=== PATIENT | female | born 1960 | race Hispanic/Latino ===

== ENCOUNTER 2018-06-09 19:07 | Inpatient (IN) | payer OTHER ==
[~2018-06-09] VITALS: Ht 157.5 cm; Wt 93.7 kg
[2018-06-09] MEDS: SODIUM CHLORIDE 0.9% 1000ML 1,000 ML IV SCH (00:15)
[2018-06-09] MEDS ORDERED: IPRATROPIUM/ALBUTEROL SULFATE 3 ML SOLUTION IH ONE ×3 (19:35→23:02)
[2018-06-09] MEDS ORDERED: CEFTRIAXONE SODIUM 1 GM ONE (19:46)
[2018-06-09 19:51] LABS: ABG BASE EXCESS 3.4 mmol/L (-2.0-3.0); ABG HCO3 28.1 mmol/L (21.0-28.0); ABG OXYGEN SATURATION 90.7 % (95.0-99.0); ABG PCO2 43 mmHg (32-45)
[2018-06-09] MEDS ORDERED: LEVOFLOXACIN 500 MG/D5W 100 ML 100 ML ONE (19:59)
[2018-06-09 20:03] LABS: CREATININE 0.9 mg/dL (0.5-1.5); POTASSIUM 3.9 mmol/L (3.5-5.1)
[2018-06-09 20:07] LABS: INR 1.01 (0.85-1.15); PARTIAL THROMBOPLASTIN TIME 44.8 SEC (26.3-35.5); PROTHROMBIN TIME 10.6 SEC (9.6-11.6)
[2018-06-09 20:09] LABS: ALBUMIN 2.9 g/dL (3.5-5.0); BILIRUBIN,TOTAL 0.4 mg/dL (0.2-1.0); TOTAL PROTEIN, SERUM 8.6 g/dL (6.0-8.3)
[2018-06-09 20:15] LABS: BASOPHILS % (AUTO) 0.3 % (0.0-5.0); EOSINOPHILS % (AUTO) 0.1 % (0.0-8.0); HEMATOCRIT 38.9 % (36-48); LYMPHOCYTES % (AUTO) 20.5 % (21.0-51.0); MEAN CORPUSCULAR HEMOGLOBIN 29.7 pg (27.0-33.0); MEAN CORPUSCULAR VOLUME 90.1 fL (79-99); MONOCYTES % (AUTO) 6.8 % (3.0-13.0); NEUTROPHILS % (AUTO) 72.3 % (40.0-77.0); NUCLEATED RED BLOOD CELLS 0.1 % (0.0-0.19); PLATELET COUNT (AUTO) 287 K/uL (130-400); RED BLOOD CELL COUNT(AUTO) 4.32 MIL/uL (4.00-5.50); RED CELL DISTRIBUTION WIDTH 14.6 % (11.0-15.5); WHITE BLOOD COUNT (AUTO) 5.7 K/uL (4.8-10.8)
[2018-06-09] MEDS ORDERED: IOHEXOL-350 75 ML VIAL IV ONE (20:28)
[2018-06-09] MEDS ORDERED: ACETAMINOPHEN EXTRA STRENGTH 500 MG TABLET ONE (22:17)
[2018-06-09 22:18] LABS: APPEARANCE,URINE Clear (CLEAR); BILIRUBIN,URINE Negative (NEGATIVE); COLOR,URINE Yellow (YELLOW); GLUCOSE, URINE (UA) Negative (NEGATIVE); KETONES,URINE Negative (NEGATIVE); LEUKOCYTE ESTERASE ,URINE Trace (NEGATIVE); NITRATE,URINE Negative (NEGATIVE); OCCULT BLOOD,URINE Negative (NEGATIVE); PH,URINE 6.5 (5.0-8.0); PROTEIN,URINE Negative (NEGATIVE)
[2018-06-09] MEDS ORDERED: MORPHINE SULFATE 2 MG/ML 1ML SYG IV PRN (22:30)
[2018-06-09] MEDS ORDERED: HYDRALAZINE HCL 20 MG/ML VIAL IV PRN (22:30)
[2018-06-09] MEDS ORDERED: ACETAMINOPHEN 325 MG TAB PO PRN (22:30)
[2018-06-09] MEDS ORDERED: ONDANSETRON HCL 4 MG/2 ML VIAL IV PRN (22:30)
[2018-06-09 22:40] LABS: BACTERIA,URINE Rare /HPF (None Seen); RBC,URINE 0-1 /HPF (0-1); SQUAMOUS EPITHELIAL CELL,UR 0-2 /HPF (0-2)
[2018-06-09] MEDS: LEVOFLOXACIN 500 MG/D5W 100 ML 100 ML IV SCH (23:00)
--- NOTE | 2018-06-10 | NUR ---
RECEIVED REPORT FROM BIB MARTINEZ
--- NOTE | 2018-06-10 00:30 | NUR ---
PT ARRIVED TO UNIT. DAUGHTER AT BEDSIDE. PT IS SOB, BUT STABLE. ON NASAL CANNULA AT 3LMP. STATES NO PAIN. AAOX3. PERRLA. JAP[place]ESE SPEAKING. PT ABLE TO AMBULATE WITH ASSISTANCE. JITTERY, PT STATED FROM NEBULIZER TREATMENTS. CHILLS NOTED. ABLE TO STATE CONCERNS. PT STATES HAS BEEN HAVING FEVERS, CHILLS, AND COUGH FOR SEVERAL DAYS. STATES NO MEDICAL HISTORY, AND NO HOME MEDICATIONS. PT HAS NO EDEMA. NO WOUNDS. WEARING GLASSES. STATES NO PRIMARY DOCTOR. ACTIVE BOWEL SOUNDS. LAST BM 06/09.
[2018-06-10] MEDS: SODIUM CHLORIDE 0.9% 1000ML 1,000 ML IV SCH ×2 (02:25→18:18)
[2018-06-10 03:00] VITALS: BP 114/89
[2018-06-10 03:40] LABS: ABG BASE EXCESS 1.6 mmol/L (-2.0-3.0); ABG HCO3 26.8 mmol/L (21.0-28.0); ABG OXYGEN SATURATION 93.6 % (95.0-99.0); ABG PCO2 44 mmHg (32-45)
[2018-06-10 05:57] LABS: HEMATOCRIT 34.4 % (36-48); MEAN CORPUSCULAR HEMOGLOBIN 29.5 pg (27.0-33.0); MEAN CORPUSCULAR HGB CONC 32.7 g/dL (32.0-36.0); MEAN CORPUSCULAR VOLUME 90.3 fL (79-99); PLATELET COUNT (AUTO) 281 K/uL (130-400); RED BLOOD CELL COUNT(AUTO) 3.81 MIL/uL (4.00-5.50); RED CELL DISTRIBUTION WIDTH 14.9 % (11.0-15.5); WHITE BLOOD COUNT (AUTO) 5.4 K/uL (4.8-10.8)
[2018-06-10 06:08] LABS: POTASSIUM 3.6 mmol/L (3.5-5.1)
[2018-06-10] MEDS ORDERED: POTASSIUM CHLORIDE 20MEQ/100ML 100 ML IV PRN (06:15)
[2018-06-10] MEDS ORDERED: POTASSIUM CHLORIDE 10% ELIXIR 20 MEQ/15 ML UDCUP PO PRN (06:15)
[2018-06-10] MEDS ORDERED: LIDOCAINE HCL-MPF 1% 2ML VIAL IVP PRN (06:15)
[2018-06-10] MEDS ORDERED: POTASSIUM CHLORIDE 20 MEQ ERTAB PO PRN (06:15)
--- NOTE | 2018-06-10 07:35 | NUR ---
ASSESSMENT ENCOUNTERED PT SITTING UP AT BEDSIDE, A&OX3, CALM COOPERATIVE AND DOES NOT APPEAR TO BE IN ANY DISTRESS NOR ANY NEURO DEFICITS PRESENT. PT DENIES PAIN, SOB, NAUSEA BUT DOES C/O COUGH AND DYSPNEA ON EXERTION. PT IS AMBULATORY, GAIT SLOW BUT STEADY WITH STAND BY ASSIST. CALL LIGHT WITHIN REACH, FAMILY AT BEDSIDE.
[2018-06-10 08:17] VITALS: BP 112/64
[2018-06-10] MEDS: FAMOTIDINE/PF 20 MG/2 ML VIAL IV SCH ×2 (08:49→21:30)
[2018-06-10] MEDS: ENOXAPARIN SODIUM 30 MG/0.3 ML SQ SCH (08:51)
[2018-06-10] MEDS: SODIUM CHLORIDE 3% FOR INHALATION 4 ML/AMP VIAL.NEB IH SCH ×3 (08:52→23:27)
[2018-06-10] MEDS: IPRATROPIUM/ALBUTEROL SULFATE 3 ML SOLUTION IH SCH ×4 (08:52→23:27)
[2018-06-10 11:48] VITALS: BP 117/66
[2018-06-10 16:02] VITALS: BP 112/64
[2018-06-10] MEDS: BUDESONIDE 0.5 MG/2 ML INH IH SCH (18:28)
[2018-06-10 19:00] VITALS: BP 108/59
[2018-06-10] MEDS: ACETAMINOPHEN-CODEINE 300/30MG TAB PO PRN (21:29)
[2018-06-10] MEDS: CEFTRIAXONE SODIUM 500 MG VIAL IV SCH (21:30)
[2018-06-10] MEDS: LEVOFLOXACIN 500 MG/D5W 100 ML 100 ML IV SCH (21:31)
[2018-06-10 23:00] VITALS: BP 122/78
--- NOTE | 2018-06-10 23:30 | NUR ---
PT STATED FEELING ALOT OF PRESSURE IN HER LUNGS. SOB. AND PAIN. CRACKLES HAD BEEN ALREADY NOTED BILATERALLY. PT STATES FEELS HEAVY IN LUNG AREA. PT WAS GIVEN HER ANTIBIOTICS. NEW IV WAS STARTED JUST RECENTLY. RT WAS CALLED AND NOTIFIED. NEBULIZER INITIATED. PT STATES NOTED IMPROVEMENT. ABLE TO BREATHE BETTER AND DECREASE IN SOB. REPOSITIONED TO HIGH FOWLERS.
[2018-06-11 03:00] VITALS: BP 120/70
--- NOTE | 2018-06-11 03:00 | NUR ---
PT CONTINUES TO BE STABLE. EYES CLOSED. IN HIGH FOWLERS POSITION. DAUGHTER AT BEDSIDE. NO DISTRESS NOTED. IMPROVEMENT IN RESPIRATORY STATUS. WILL CONTINUE TO MONITOR.
[2018-06-11] MEDS: SODIUM CHLORIDE 0.9% 1000ML 1,000 ML IV SCH (04:18)
[2018-06-11] MEDS: SODIUM CHLORIDE 3% FOR INHALATION 4 ML/AMP VIAL.NEB IH SCH ×4 (06:14→23:43)
[2018-06-11] MEDS: IPRATROPIUM/ALBUTEROL SULFATE 3 ML SOLUTION IH SCH ×4 (06:14→23:43)
[2018-06-11] MEDS: BUDESONIDE 0.5 MG/2 ML INH IH SCH ×2 (06:32→19:07)
--- NOTE | 2018-06-11 07:50 | NUR ---
ASSESSMENT ENCOUNTERED PT ASLEEP BUT AROUSEABLE, A&OX3, CALM COOPERATIVE AND DOES NOT APPEAR TO IN ANY DISTRESS NOR ANY NEURO DEFICITS PRESENT. PT DOES C/O COUGH AND DYSPNEA ON EXERTION BUT DENIES DIZZINESS OR NAUSEA. PT IS AMBULATORY TO BATHROOM AND BACK TO CHAIR, GAIT SLOW BUT STEADY WITH STAND BY ASSIST AND O2 EXTENSION. CALL LIGHT WITHIN REACH, FAMILY AT BEDSIDE.
[2018-06-11 07:55] VITALS: BP 104/66
[2018-06-11] MEDS: IBUPROFEN 800 MG TAB PO SCH ×2 (08:15→16:32)
[2018-06-11] MEDS: FAMOTIDINE/PF 20 MG/2 ML VIAL IV SCH ×2 (08:20→21:27)
[2018-06-11] MEDS: ENOXAPARIN SODIUM 30 MG/0.3 ML SQ SCH (08:21)
--- NOTE | 2018-06-11 09:26 | NUR ---
DC PLAN VISITED WITH PATIENT. PATIENT LIVES WITH SPOUSE. INDEPENDENT ABLE TO PERFORM ADL'S. PATIENT HAS NO SERVICES OR DME'S. FEELS SAFE TO RETURN HOME. PATIENT HAS APPOINTMENT FOR THE 4TH TO GET NEW ID. UNTIL THEN CAN NOT GET SERVICES AT [facility]. Addendum: 06/11/18 at 0928 by CAMERON ZUNIGA RN CM Amended: Links added.
[2018-06-11 11:49] VITALS: BP 110/62
[2018-06-11 15:35] VITALS: BP 93/61
[2018-06-11 20:13] VITALS: BP 108/58
[2018-06-11] MEDS: CEFTRIAXONE SODIUM 500 MG VIAL IV SCH (21:26)
[2018-06-11] MEDS: LEVOFLOXACIN 500 MG/D5W 100 ML 100 ML IV SCH (22:46)
[2018-06-12] VITALS (7 sets, daily range): BP systolic 107–124; BP diastolic 58–68
[2018-06-12] MEDS: IBUPROFEN 800 MG TAB PO SCH ×2 (00:15→08:13)
[2018-06-12 04:29] LABS: HEMATOCRIT 33.5 % (36-48); MEAN CORPUSCULAR HEMOGLOBIN 30.3 pg (27.0-33.0); MEAN CORPUSCULAR HGB CONC 33.7 g/dL (32.0-36.0); PLATELET COUNT (AUTO) 249 K/uL (130-400); RED BLOOD CELL COUNT(AUTO) 3.72 MIL/uL (4.00-5.50); RED CELL DISTRIBUTION WIDTH 14.6 % (11.0-15.5); WHITE BLOOD COUNT (AUTO) 4.1 K/uL (4.8-10.8)
[2018-06-12 04:40] LABS: CREATININE 0.9 mg/dL (0.5-1.5); POTASSIUM 4.3 mmol/L (3.5-5.1)
[2018-06-12 04:51] LABS: B-TYPE NATRIURETIC PEPTIDE < 5 pg/mL (0-100)
[2018-06-12] MEDS: SODIUM CHLORIDE 3% FOR INHALATION 4 ML/AMP VIAL.NEB IH SCH ×3 (06:55→18:46)
[2018-06-12] MEDS: IPRATROPIUM/ALBUTEROL SULFATE 3 ML SOLUTION IH SCH ×3 (06:55→18:46)
[2018-06-12] MEDS: BUDESONIDE 0.5 MG/2 ML INH IH SCH ×2 (07:18→18:46)
--- NOTE | 2018-06-12 07:40 | NUR ---
ASSESSMENT ENCOUNTERED PT A&OX3, CALM COOPERATIVE AND DOES NOT APPEAR TO BE IN ANY DISTRESS NOR ANY NEURO DEFICITS PRESENT. PT DENIES PAIN, SOB, NAUSEA BUT DOES C/O DYSPNEA ON EXERTION. PT IS AMBULATORY, GAIT SLOW BUT STEADY WITH STAND BY ASSIST AND O2 EXTENSION. CALL LIGHT WITHIN REACH, FAMILY AT BEDSIDE.
[2018-06-12] MEDS: FAMOTIDINE/PF 20 MG/2 ML VIAL IV SCH ×2 (08:13→22:10)
[2018-06-12] MEDS: ENOXAPARIN SODIUM 30 MG/0.3 ML SQ SCH (08:13)
[2018-06-12] MEDS: METHYLPREDNISOLONE SOD SUCC 40MG/ML 1ML IVP SCH ×2 (13:28→22:10)
[2018-06-12] MEDS: INSULIN HUMULIN R 100 UNIT/ML 3ML SQ SCH (20:57)
[2018-06-12] MEDS: CEFTRIAXONE SODIUM 500 MG VIAL IV SCH (22:05)
[2018-06-12] MEDS: LEVOFLOXACIN 500 MG/D5W 100 ML 100 ML IV SCH (23:08)
[2018-06-13] MEDS: IPRATROPIUM/ALBUTEROL SULFATE 3 ML SOLUTION IH SCH ×4 (00:15→23:23)
[2018-06-13] MEDS: SODIUM CHLORIDE 3% FOR INHALATION 4 ML/AMP VIAL.NEB IH SCH ×5 (00:15→23:23)
[2018-06-13] MEDS: IBUPROFEN 800 MG TAB PO SCH ×4 (00:43→23:42)
[2018-06-13] MEDS: METHYLPREDNISOLONE SOD SUCC 40MG/ML 1ML IVP SCH ×3 (03:33→21:11)
[2018-06-13 03:52] VITALS: BP 129/76
[2018-06-13 04:09] LABS: BASOPHILS % (AUTO) 0.1 % (0.0-5.0); HEMATOCRIT 36.1 % (36-48); LYMPHOCYTES % (AUTO) 11.3 % (21.0-51.0); MEAN CORPUSCULAR HEMOGLOBIN 29.7 pg (27.0-33.0); MEAN CORPUSCULAR HGB CONC 32.8 g/dL (32.0-36.0); MEAN CORPUSCULAR VOLUME 90.8 fL (79-99); MONOCYTES % (AUTO) 1.3 % (3.0-13.0); NEUTROPHILS % (AUTO) 87.3 % (40.0-77.0); PLATELET COUNT (AUTO) 286 K/uL (130-400); RED BLOOD CELL COUNT(AUTO) 3.98 MIL/uL (4.00-5.50); RED CELL DISTRIBUTION WIDTH 14.7 % (11.0-15.5); WHITE BLOOD COUNT (AUTO) 5.4 K/uL (4.8-10.8)
[2018-06-13 04:32] LABS: B-TYPE NATRIURETIC PEPTIDE 22 pg/mL (0-100)
[2018-06-13] MEDS: BUDESONIDE 0.5 MG/2 ML INH IH SCH ×2 (06:34→19:50)
[2018-06-13] MEDS: INSULIN HUMULIN R 100 UNIT/ML 3ML SQ SCH ×4 (06:36→21:13)
[2018-06-13 07:26] VITALS: BP 123/70
--- NOTE | 2018-06-13 07:35 | NUR ---
ASSESSMENT ENCOUNTERED PT AMBULATING FROM BATHROOM TO BED, GAIT SLOW BUT STEADY WITH O2 EXTENSION, CALM COOPERATIVE AND DOES NOT APPEAR TO BE IN ANY DISTRESS NOR ANY NEURO DEFICITS PRESENT. PT DENIES DIZZINESS, PAIN OR NAUSEA BUT DOES C/O DYSPNEA ON EXERTION THAT RESOLVES SHORTLY AFTER SITTING DOWN. PT RESTING COMFORTABLY, CALL LIGHT WITHIN REACH, FAMILY AT BEDSIDE.
[2018-06-13] MEDS: FAMOTIDINE/PF 20 MG/2 ML VIAL IV SCH (08:59)
[2018-06-13] MEDS: ENOXAPARIN SODIUM 30 MG/0.3 ML SQ SCH (08:59)
[2018-06-13 09:10] LABS: ABG BASE EXCESS 1.9 mmol/L (-2.0-3.0); ABG HCO3 26.2 mmol/L (21.0-28.0); ABG OXYGEN SATURATION 88.6 % (95.0-99.0); ABG PCO2 40 mmHg (32-45)
[2018-06-13 11:26] VITALS: BP 128/65
[2018-06-13 16:17] VITALS: BP 119/65
[2018-06-13 19:21] VITALS: BP 142/78
[2018-06-13] MEDS: CEFTRIAXONE SODIUM 500 MG VIAL IV SCH (21:16)
[2018-06-13] MEDS: LEVOFLOXACIN 500 MG/D5W 100 ML 100 ML IV SCH (22:39)
[2018-06-13 23:31] VITALS: BP 112/61
[2018-06-14 03:49] VITALS: BP 142/75
[2018-06-14] MEDS: METHYLPREDNISOLONE SOD SUCC 40MG/ML 1ML IVP SCH ×3 (03:59→19:38)
[2018-06-14 04:38] LABS: HEMATOCRIT 34.7 % (36-48); MEAN CORPUSCULAR HEMOGLOBIN 30.1 pg (27.0-33.0); MEAN CORPUSCULAR HGB CONC 33.3 g/dL (32.0-36.0); MEAN CORPUSCULAR VOLUME 90.4 fL (79-99); PLATELET COUNT (AUTO) 300 K/uL (130-400); RED BLOOD CELL COUNT(AUTO) 3.83 MIL/uL (4.00-5.50); RED CELL DISTRIBUTION WIDTH 14.8 % (11.0-15.5); WHITE BLOOD COUNT (AUTO) 7.3 K/uL (4.8-10.8)
[2018-06-14 04:54] LABS: CREATININE 0.9 mg/dL (0.5-1.5); POTASSIUM 4.3 mmol/L (3.5-5.1)
[2018-06-14] MEDS: INSULIN HUMULIN R 100 UNIT/ML 3ML SQ SCH ×4 (05:53→22:03)
[2018-06-14] MEDS: IPRATROPIUM/ALBUTEROL SULFATE 3 ML SOLUTION IH SCH ×4 (06:24→23:35)
[2018-06-14] MEDS: BUDESONIDE 0.5 MG/2 ML INH IH SCH ×2 (06:24→19:52)
[2018-06-14] MEDS: SODIUM CHLORIDE 3% FOR INHALATION 4 ML/AMP VIAL.NEB IH SCH ×4 (06:24→23:35)
[2018-06-14 08:22] VITALS: BP 110/65
[2018-06-14] MEDS: ENOXAPARIN SODIUM 30 MG/0.3 ML SQ SCH (08:26)
[2018-06-14 12:05] LABS: HEMOGLOBIN A1C 6.4 % (4.0-6.0)
[2018-06-14 12:38] VITALS: BP 122/70
[2018-06-14] MEDS: CEFEPIME HCL 2 GM VIAL IVP SCH ×2 (14:06→19:38)
--- NOTE | 2018-06-14 15:58 | NUR ---
1555- PATIENT IS HAVING PROCEDURE CHEST X-RAY. ANA HALEY IS AWARE. WILL ATTEMPT TO SEE PATIENT TOMORROW. Addendum: 06/14/18 at 1600 by MIGUELINA CONCEPCION, PT PT Amended: Links added.
[2018-06-14 16:02] VITALS: BP 131/79
[2018-06-14 19:07] VITALS: BP 119/71
[2018-06-14 23:05] VITALS: BP 120/75
[2018-06-14] MEDS: LEVOFLOXACIN 500 MG/D5W 100 ML 100 ML IV SCH (23:08)
[2018-06-15 03:29] VITALS: BP 108/65
[2018-06-15] MEDS: CEFEPIME HCL 2 GM VIAL IVP SCH ×3 (03:29→20:14)
[2018-06-15] MEDS: METHYLPREDNISOLONE SOD SUCC 40MG/ML 1ML IVP SCH ×3 (03:30→20:14)
[2018-06-15 04:29] LABS: HEMATOCRIT 35.6 % (36-48); MEAN CORPUSCULAR HEMOGLOBIN 29.7 pg (27.0-33.0); MEAN CORPUSCULAR HGB CONC 32.7 g/dL (32.0-36.0); MEAN CORPUSCULAR VOLUME 90.8 fL (79-99); PLATELET COUNT (AUTO) 303 K/uL (130-400); RED BLOOD CELL COUNT(AUTO) 3.92 MIL/uL (4.00-5.50); RED CELL DISTRIBUTION WIDTH 14.8 % (11.0-15.5); WHITE BLOOD COUNT (AUTO) 6.7 K/uL (4.8-10.8)
[2018-06-15 04:35] LABS: ALBUMIN 2.7 g/dL (3.5-5.0); BILIRUBIN,TOTAL 0.2 mg/dL (0.2-1.0); CREATININE 0.9 mg/dL (0.5-1.5); MAGNESIUM 2.3 mg/dL (1.80-2.40); PHOSPHORUS 3.4 mg/dL (2.5-4.9); POTASSIUM 4.4 mmol/L (3.5-5.1); TOTAL PROTEIN, SERUM 7.6 g/dL (6.0-8.3)
[2018-06-15 05:22] LABS: B-TYPE NATRIURETIC PEPTIDE < 5 pg/mL (0-100)
[2018-06-15] MEDS: SODIUM CHLORIDE 3% FOR INHALATION 4 ML/AMP VIAL.NEB IH SCH ×3 (06:12→19:43)
[2018-06-15] MEDS: BUDESONIDE 0.5 MG/2 ML INH IH SCH ×2 (06:12→19:43)
[2018-06-15] MEDS: IPRATROPIUM/ALBUTEROL SULFATE 3 ML SOLUTION IH SCH ×3 (06:12→19:43)
[2018-06-15] MEDS: INSULIN HUMULIN R 100 UNIT/ML 3ML SQ SCH ×4 (06:57→22:09)
[2018-06-15 07:46] VITALS: BP 114/71
[2018-06-15 08:15] LABS: ABG BASE EXCESS 5.2 mmol/L (-2.0-3.0); ABG HCO3 30.4 mmol/L (21.0-28.0); ABG OXYGEN SATURATION 97.3 % (95.0-99.0); ABG PCO2 46 mmHg (32-45)
[2018-06-15] MEDS: ENOXAPARIN SODIUM 30 MG/0.3 ML SQ SCH (09:11)
[2018-06-15 11:54] VITALS: BP 123/75
[2018-06-15 14:51] VITALS: BP 107/67
[2018-06-15] MEDS ORDERED: IOHEXOL-350 50ML VIAL IV ONE (15:05)
[2018-06-15] MEDS ORDERED: SODIUM CHLORIDE 0.9% 1000ML 1,000 ML IV ONE (15:15)
[2018-06-15 19:22] VITALS: BP 116/70
[2018-06-15] MEDS: LEVOFLOXACIN 500 MG/D5W 100 ML 100 ML IV SCH (22:09)
[2018-06-15] MEDS: ACETAMINOPHEN-CODEINE 300/30MG TAB PO PRN (22:22)
[2018-06-15 23:15] VITALS: BP 122/77
[2018-06-16] MEDS: IPRATROPIUM/ALBUTEROL SULFATE 3 ML SOLUTION IH SCH ×3 (00:13→10:49)
[2018-06-16] MEDS: SODIUM CHLORIDE 3% FOR INHALATION 4 ML/AMP VIAL.NEB IH SCH ×3 (00:13→10:49)
[2018-06-16 03:32] VITALS: BP 101/53
[2018-06-16] MEDS: CEFEPIME HCL 2 GM VIAL IVP SCH ×2 (04:24→11:40)
[2018-06-16 04:47] LABS: CREATININE 0.9 mg/dL (0.5-1.5); POTASSIUM 4.5 mmol/L (3.5-5.1)
[2018-06-16] MEDS: BUDESONIDE 0.5 MG/2 ML INH IH SCH (06:18)
[2018-06-16] MEDS: INSULIN HUMULIN R 100 UNIT/ML 3ML SQ SCH ×2 (06:47→11:51)
[2018-06-16 07:58] LABS: ABG BASE EXCESS 4.3 mmol/L (-2.0-3.0); ABG HCO3 29.6 mmol/L (21.0-28.0); ABG OXYGEN SATURATION 88.6 % (95.0-99.0); ABG PCO2 46 mmHg (32-45)
[2018-06-16 08:00] VITALS: BP 99/65
[2018-06-16 08:41] LABS: ABG BASE EXCESS 4.6 mmol/L (-2.0-3.0); ABG PCO2 42 mmHg (32-45)
[2018-06-16] MEDS: ENOXAPARIN SODIUM 30 MG/0.3 ML SQ SCH (09:30)
[2018-06-16] MEDS: METHYLPREDNISOLONE SOD SUCC 40MG/ML 1ML IVP SCH (09:30)
[2018-06-16 11:57] VITALS: BP 113/69
[2018-06-16] MEDS ORDERED: PREDNISONE 20 MG TABLET PO SCH (15:30)
[2018-06-16 16:00] VITALS: BP 123/70
[2018-06-16] MEDS ORDERED: PRED20TA3 PO (17:24)
[2018-06-16] MEDS ORDERED: LEVO500T2 PO (17:24)
--- NOTE | 2018-06-16 18:03 | NUR ---
RDSCREEN - LOS X 7 Patient with Good PO (75%) with no report of GI distress. Patient LBM 06/15/18. Patient monitored labs: Cl 100, CO2 33, BUN 25, Glu 196, Alb 2.7. Patient with Ensure TID. RD to continue to monitor. Please notify RD as nutritional concerns arise. Thank you. Addendum: 06/16/18 at [address] RD Amended: Links added.
[2018-06-16] MEDS ORDERED: SODIUM CHLORIDE 3% FOR INHALATION 4 ML/AMP VIAL.NEB IH ONE (18:11)
== END 2018-06-16 18:43 | disposition home or self-care (01) | DRG 193 ==
LOC: EDH 19:07 → EDHIP 19:08 → 2DH 06-10 00:05
PROVIDERS: ADMIT Internal Medicine; ATTEND Internal Medicine
DX: J18.9 Pneumonia, unspecified organism (principal); J96.21 Acute and chronic respiratory failure with hypoxia; J44.0 Chronic obstructive pulmonary disease with (acute) lower respiratory infection; I51.7 Cardiomegaly; F17.200 Nicotine dependence, unspecified, uncomplicated; E66.01 Morbid (severe) obesity due to excess calories; E87.6 Hypokalemia; G47.33 Obstructive sleep apnea (adult) (pediatric); I27.81 Cor pulmonale (chronic); L29.9 Pruritus, unspecified; R13.10 Dysphagia, unspecified; Z68.37 Body mass index [BMI] 37.0-37.9, adult; Z88.0 Allergy status to penicillin; Z99.81 Dependence on supplemental oxygen
CPT/HCPCS: 36415; 36600; 70491; 71045; 71046; 71275; 80048; 80053; 80339; 81001; 82803; 82948; 83036; 83605; 83735; 83880; 84100; 84484; 85025; 85027; 85610; 85730; 87040; 87071; 87205; 87804; 93005; 94640; 94660; 94664; 94667; 94668; 94760; 99291; A4218; G0378; J0692; J0696; J1650; J1815; J1956; J2920; J3490; J7030; Q9967

== ENCOUNTER 2018-07-12 00:17 | Emergency (ER) | payer SELFPAY ==
[~2018-07-12 00:17] MED LIST: LEVO500T2 PO; PRED20TA3 PO
[2018-07-12 00:51] LABS: BASOPHILS % (AUTO) 0.6 % (0.0-5.0); HEMATOCRIT 40.3 % (36-48); MEAN CORPUSCULAR HGB CONC 33.6 g/dL (32.0-36.0); MEAN CORPUSCULAR VOLUME 89.1 fL (79-99); MONOCYTES % (AUTO) 8.7 % (3.0-13.0); NEUTROPHILS % (AUTO) 56.7 % (40.0-77.0); PLATELET COUNT (AUTO) 282 K/uL (130-400); RED BLOOD CELL COUNT(AUTO) 4.53 MIL/uL (4.00-5.50); RED CELL DISTRIBUTION WIDTH 14.9 % (11.0-15.5); WHITE BLOOD COUNT (AUTO) 4.8 K/uL (4.8-10.8)
[2018-07-12 00:52] LABS: APPEARANCE,URINE Clear (CLEAR); BILIRUBIN,URINE Negative (NEGATIVE); COLOR,URINE Yellow (YELLOW); GLUCOSE, URINE (UA) Negative (NEGATIVE); KETONES,URINE Negative (NEGATIVE); LEUKOCYTE ESTERASE ,URINE Small (NEGATIVE); NITRATE,URINE Negative (NEGATIVE); OCCULT BLOOD,URINE Negative (NEGATIVE); PH,URINE 7.5 (5.0-8.0); PROTEIN,URINE Negative (NEGATIVE)
[2018-07-12 01:11] LABS: CREATININE 0.9 mg/dL (0.5-1.5); POTASSIUM 3.6 mmol/L (3.5-5.1)
[2018-07-12 01:14] LABS: INR 0.93 (0.85-1.15); PARTIAL THROMBOPLASTIN TIME 44.1 SEC (26.3-35.5); PROTHROMBIN TIME 9.8 SEC (9.6-11.6)
[2018-07-12 01:17] LABS: ALBUMIN 3.4 g/dL (3.5-5.0); BILIRUBIN,TOTAL 0.3 mg/dL (0.2-1.0); TOTAL PROTEIN, SERUM 8.2 g/dL (6.0-8.3)
[2018-07-12 01:55] LABS: BACTERIA,URINE Few /HPF (None Seen); RBC,URINE 0-1 /HPF (0-1)
== END 2018-07-12 05:54 | disposition home or self-care (01) ==
LOC: EDH 00:17
DX: J84.10 Pulmonary fibrosis, unspecified (principal); R04.0 Epistaxis; R10.11 Right upper quadrant pain; Z88.1 Allergy status to other antibiotic agents
CPT/HCPCS: 36415; 74176; 80053; 81001; 82550; 83690; 84484; 85025; 85610; 85730; 93005

== ENCOUNTER 2018-08-24 01:42 | Emergency (ER) | payer OTHER ==
[2018-08-24] MEDS ORDERED: MECLIZINE HCL 25 MG TABLET ONE (03:10)
[2018-08-24] MEDS ORDERED: ONDANSETRON HCL 4 MG/2 ML VIAL ONE (03:11)
[2018-08-24] MEDS ORDERED: SODIUM CHLORIDE 0.9% 500ML 500 ML IV ONE (03:11)
[2018-08-24 03:29] LABS: APPEARANCE,URINE Clear (CLEAR); BILIRUBIN,URINE Negative (NEGATIVE); COLOR,URINE Yellow (YELLOW); GLUCOSE, URINE (UA) Negative (NEGATIVE); KETONES,URINE Negative (NEGATIVE); LEUKOCYTE ESTERASE ,URINE Negative (NEGATIVE); NITRATE,URINE Negative (NEGATIVE); OCCULT BLOOD,URINE Negative (NEGATIVE); PH,URINE 6.5 (5.0-8.0); PROTEIN,URINE Negative (NEGATIVE)
[2018-08-24 03:37] LABS: CREATININE 0.9 mg/dL (0.5-1.5); POTASSIUM 3.5 mmol/L (3.5-5.1)
[2018-08-24 03:44] LABS: ALBUMIN 3.4 g/dL (3.5-5.0); BILIRUBIN,TOTAL 0.4 mg/dL (0.2-1.0)
[2018-08-24 03:50] LABS: BASOPHILS % (AUTO) 0.3 % (0.0-5.0); HEMATOCRIT 37.6 % (36-48); INR 0.93 (0.85-1.15); LYMPHOCYTES % (AUTO) 32.5 % (21.0-51.0); MEAN CORPUSCULAR HEMOGLOBIN 29.3 pg (27.0-33.0); MEAN CORPUSCULAR HGB CONC 33.2 g/dL (32.0-36.0); MONOCYTES % (AUTO) 7.5 % (3.0-13.0); NEUTROPHILS % (AUTO) 59.7 % (40.0-77.0); PARTIAL THROMBOPLASTIN TIME 36.2 SEC (26.3-35.5); PLATELET COUNT (AUTO) 224 K/uL (130-400); PROTHROMBIN TIME 9.8 SEC (9.6-11.6); RED BLOOD CELL COUNT(AUTO) 4.27 MIL/uL (4.00-5.50); RED CELL DISTRIBUTION WIDTH 15.4 % (11.0-15.5); WHITE BLOOD COUNT (AUTO) 4.6 K/uL (4.8-10.8)
[2018-08-24 03:58] LABS: B-TYPE NATRIURETIC PEPTIDE < 5 pg/mL (0-100)
[2018-08-24] MEDS ORDERED: DiphenhydrAMINE HCL 50 MG/ML VIAL ONE (04:26)
== END 2018-08-24 04:46 | disposition home or self-care (01) ==
LOC: EDH 01:42
DX: H81.393 Other peripheral vertigo, bilateral (principal); E86.9 Volume depletion, unspecified; Z88.0 Allergy status to penicillin; Z88.1 Allergy status to other antibiotic agents
CPT/HCPCS: 36415; 70450; 71045; 80053; 81003; 82550; 83605; 83880; 84484; 85025; 85610; 85730; 93005; 96361; 96374; 96375; 99285; J1200; J2405; J7040

== ENCOUNTER 2018-09-18 00:23 | Emergency (ER) | payer OTHER ==
[2018-09-18] MEDS ORDERED: ASPIRIN 325 MG TABLET ONE (00:32)
[2018-09-18 00:37] LABS: BASOPHILS % (AUTO) 0.3 % (0.0-5.0); HEMATOCRIT 39.1 % (36-48); MEAN CORPUSCULAR HEMOGLOBIN 29.8 pg (27.0-33.0); MEAN CORPUSCULAR HGB CONC 33.7 g/dL (32.0-36.0); MEAN CORPUSCULAR VOLUME 88.4 fL (79-99); MONOCYTES % (AUTO) 7.3 % (3.0-13.0); NEUTROPHILS % (AUTO) 64.4 % (40.0-77.0); PLATELET COUNT (AUTO) 241 K/uL (130-400); RED BLOOD CELL COUNT(AUTO) 4.42 MIL/uL (4.00-5.50); RED CELL DISTRIBUTION WIDTH 15.5 % (11.0-15.5); WHITE BLOOD COUNT (AUTO) 6.2 K/uL (4.8-10.8)
[2018-09-18 00:46] LABS: CREATININE 0.9 mg/dL (0.5-1.5); POTASSIUM 3.8 mmol/L (3.5-5.1)
[2018-09-18 00:50] LABS: INR 0.96 (0.85-1.15); PARTIAL THROMBOPLASTIN TIME 37.3 SEC (26.3-35.5); PROTHROMBIN TIME 10.1 SEC (9.6-11.6)
[2018-09-18 01:00] LABS: ALBUMIN 3.5 g/dL (3.5-5.0); BILIRUBIN,TOTAL 0.7 mg/dL (0.2-1.0); TOTAL PROTEIN, SERUM 8.4 g/dL (6.0-8.3)
[2018-09-18] MEDS ORDERED: IOHEXOL-350 75 ML VIAL IV ONE (01:51)
[2018-09-18] MEDS ORDERED: MORPHINE SULFATE 4 MG/1ML SYG ONE (02:19)
== END 2018-09-18 05:20 | disposition home or self-care (01) ==
LOC: EDH 00:23
DX: R07.89 Other chest pain (principal); M54.6 Pain in thoracic spine; J84.10 Pulmonary fibrosis, unspecified; Z88.0 Allergy status to penicillin; Z88.1 Allergy status to other antibiotic agents
CPT/HCPCS: 36415; 71045; 71275; 80053; 82550; 83874; 84484 ×2; 85025; 85610; 85730; 93005 ×3; 96374; 96375; 99285; J2270; Q9967

== ENCOUNTER 2020-03-22 10:27 | Emergency (ER) | payer SELFPAY ==
[2020-03-22 11:03] LABS: BASOPHILS % (AUTO) 0.4 % (0.0-5.0); EOSINOPHILS % (AUTO) 2.3 % (0.0-8.0); HEMATOCRIT 43.7 % (36-48); LYMPHOCYTES % (AUTO) 34.1 % (21.0-51.0); MEAN CORPUSCULAR HEMOGLOBIN 31.4 pg (27.0-33.0); MEAN CORPUSCULAR HGB CONC 33.4 g/dL (32.0-36.0); MONOCYTES % (AUTO) 6.8 % (3.0-13.0); NEUTROPHILS % (AUTO) 56.2 % (40.0-77.0); PLATELET COUNT (AUTO) 218 K/uL (130-400); RED BLOOD CELL COUNT(AUTO) 4.65 MIL/uL (4.00-5.50); RED CELL DISTRIBUTION WIDTH 12.8 % (11.0-15.5); WHITE BLOOD COUNT (AUTO) 5.6 K/uL (4.8-10.8)
[2020-03-22 11:15] LABS: ALBUMIN 3.6 g/dL (3.5-5.0); BILIRUBIN,TOTAL 0.5 mg/dL (0.2-1.0); CREATININE 0.8 mg/dL (0.5-1.5); POTASSIUM 3.9 mmol/L (3.5-5.1)
[2020-03-22] MEDS ORDERED: MECLIZINE HCL 25 MG TABLET ONE (11:31)
[2020-03-22 12:22] LABS: APPEARANCE,URINE Clear (CLEAR); BILIRUBIN,URINE Negative (NEGATIVE); COLOR,URINE Yellow (YELLOW); GLUCOSE, URINE (UA) Negative (NEGATIVE); KETONES,URINE Negative (NEGATIVE); LEUKOCYTE ESTERASE ,URINE Negative (NEGATIVE); NITRATE,URINE Negative (NEGATIVE); OCCULT BLOOD,URINE Negative (NEGATIVE); PROTEIN,URINE Negative (NEGATIVE); UROBILINOGEN,URINE 0.2 mg/dL (0.2-1.0)
[2020-03-22] MEDS ORDERED: LORAZEPAM 2 MG/ML 1 ML VIAL ONE (17:59)
== END 2020-03-22 19:11 | disposition home or self-care (01) ==
LOC: EDH 10:27
DX: R07.89 Other chest pain (principal); F41.9 Anxiety disorder, unspecified; Z20.828 Contact with and (suspected) exposure to other viral communicable diseases; Z88.0 Allergy status to penicillin; Z90.49 Acquired absence of other specified parts of digestive tract
CPT/HCPCS: 36415; 70450; 71045; 80053; 81003; 84484; 85025; 86140; 87426; 93005; 96372; 99285; J2060; U0003

== ENCOUNTER 2020-03-23 18:49 | Inpatient (IN) | payer SELFPAY ==
[2020-03-23 20:23] LABS: BASOPHILS % (AUTO) 0.2 % (0.0-5.0); EOSINOPHILS % (AUTO) 2.7 % (0.0-8.0); HEMATOCRIT 43.3 % (36-48); MEAN CORPUSCULAR HEMOGLOBIN 31.1 pg (27.0-33.0); MEAN CORPUSCULAR HGB CONC 32.8 g/dL (32.0-36.0); MEAN CORPUSCULAR VOLUME 94.7 fL (79-99); MONOCYTES % (AUTO) 9.8 % (3.0-13.0); NEUTROPHILS % (AUTO) 55.9 % (40.0-77.0); PLATELET COUNT (AUTO) 195 K/uL (130-400); RED BLOOD CELL COUNT(AUTO) 4.57 MIL/uL (4.00-5.50); RED CELL DISTRIBUTION WIDTH 12.9 % (11.0-15.5); WHITE BLOOD COUNT (AUTO) 5.5 K/uL (4.8-10.8)
[2020-03-23 20:34] LABS: CREATININE 0.9 mg/dL (0.5-1.5); POTASSIUM 3.9 mmol/L (3.5-5.1)
[2020-03-23 20:38] LABS: ALBUMIN 3.5 g/dL (3.5-5.0); BILIRUBIN,TOTAL 0.4 mg/dL (0.2-1.0); TOTAL PROTEIN, SERUM 7.7 g/dL (6.0-8.3)
[2020-03-23] MEDS ORDERED: ONDANSETRON 4MG INJ ONE (21:34)
[2020-03-23] MEDS ORDERED: MECLIZINE HCL 25 MG TABLET ONE (21:34)
[2020-03-23] MEDS ORDERED: HYDRALAZINE 20MG/ML VIAL IV PRN (23:15)
[2020-03-23] MEDS ORDERED: ONDANSETRON 4MG INJ IV PRN (23:15)
[2020-03-23] MEDS ORDERED: ACETAMINOPHEN 325 MG TAB PO PRN ×2 (23:15)
[2020-03-23] MEDS ORDERED: MECLIZINE HCL 25 MG TABLET PO PRN (23:30)
[2020-03-24 05:20] LABS: BASOPHILS % (AUTO) 0.2 % (0.0-5.0); LYMPHOCYTES % (AUTO) 37.5 % (21.0-51.0); MEAN CORPUSCULAR HEMOGLOBIN 30.9 pg (27.0-33.0); MEAN CORPUSCULAR HGB CONC 32.7 g/dL (32.0-36.0); MEAN CORPUSCULAR VOLUME 94.7 fL (79-99); MONOCYTES % (AUTO) 9.2 % (3.0-13.0); NEUTROPHILS % (AUTO) 52.9 % (40.0-77.0); PLATELET COUNT (AUTO) 189 K/uL (130-400); RED BLOOD CELL COUNT(AUTO) 4.33 MIL/uL (4.00-5.50); RED CELL DISTRIBUTION WIDTH 12.9 % (11.0-15.5); WHITE BLOOD COUNT (AUTO) 4.6 K/uL (4.8-10.8)
[2020-03-24 06:03] LABS: ALBUMIN 3.2 g/dL (3.5-5.0); BILIRUBIN,TOTAL 0.6 mg/dL (0.2-1.0); CREATININE 0.7 mg/dL (0.5-1.5); POTASSIUM 3.5 mmol/L (3.5-5.1)
[2020-03-24] MEDS ORDERED: MECLIZINE HCL 25 MG TABLET ONE ×3 (06:24→21:46)
[2020-03-24] MEDS ORDERED: FAMOTIDINE 20MG VIAL IV SCH (09:00)
[2020-03-24] MEDS ORDERED: FAMOTIDINE 20MG VIAL IV ONE ×2 (09:22→21:47)
[2020-03-24 14:42] LABS: APPEARANCE,URINE CLOUDY (CLEAR); BILIRUBIN,URINE NEGATIVE (NEGATIVE); COLOR,URINE YELLOW (YELLOW); GLUCOSE, URINE (UA) NEGATIVE (NEGATIVE); KETONES,URINE NEGATIVE (NEGATIVE); LEUKOCYTE ESTERASE ,URINE MODERATE (NEGATIVE); NITRATE,URINE NEGATIVE (NEGATIVE); OCCULT BLOOD,URINE NEGATIVE (NEGATIVE); PROTEIN,URINE NEGATIVE (NEGATIVE); UROBILINOGEN,URINE 0.2 mg/dL (0.2-1.0)
[2020-03-24 15:04] LABS: BACTERIA,URINE Few /HPF (None Seen); RBC,URINE 0-1 /HPF (0-1)
[2020-03-24 15:05] LABS: MUCUS,URINE Few LPF (None Seen)
[2020-03-24] MEDS ORDERED: PRED5TAB44 PO (15:31)
[2020-03-24] MEDS ORDERED: CELE200C PO (15:31)
[2020-03-25 05:58] LABS: HEMATOCRIT 39.7 % (36-48); LYMPHOCYTES % (AUTO) 38.6 % (21.0-51.0); MEAN CORPUSCULAR HGB CONC 32.7 g/dL (32.0-36.0); MEAN CORPUSCULAR VOLUME 94.7 fL (79-99); MONOCYTES % (AUTO) 9.4 % (3.0-13.0); NEUTROPHILS % (AUTO) 51.8 % (40.0-77.0); PLATELET COUNT (AUTO) 177 K/uL (130-400); RED BLOOD CELL COUNT(AUTO) 4.19 MIL/uL (4.00-5.50); RED CELL DISTRIBUTION WIDTH 12.8 % (11.0-15.5); WHITE BLOOD COUNT (AUTO) 4.5 K/uL (4.8-10.8)
[2020-03-25 07:19] LABS: BILIRUBIN,TOTAL 0.7 mg/dL (0.2-1.0); CREATININE 0.8 mg/dL (0.5-1.5); POTASSIUM 3.6 mmol/L (3.5-5.1); TOTAL PROTEIN, SERUM 6.8 g/dL (6.0-8.3)
[2020-03-25] MEDS ORDERED: FAMOTIDINE 20MG TAB ONE (09:38)
[2020-03-25] MEDS ORDERED: MECLIZINE HCL 25 MG TABLET ONE (21:45)
[2020-03-25] MEDS ORDERED: FAMOTIDINE 20MG VIAL IV ONE (21:45)
== END 2020-03-25 22:20 | disposition home or self-care (01) | DRG 149 ==
LOC: EDH 18:49 → EDHIP 18:50 → OBSVTOIN 18:50
PROVIDERS: ADMIT Hospitalist; ATTEND Hospitalist
DX: H81.10 Benign paroxysmal vertigo, unspecified ear (principal); J84.10 Pulmonary fibrosis, unspecified; E66.01 Morbid (severe) obesity due to excess calories; Z90.49 Acquired absence of other specified parts of digestive tract; Z88.6 Allergy status to analgesic agent; Z88.1 Allergy status to other antibiotic agents; Z88.0 Allergy status to penicillin
CPT/HCPCS: 36415; 70450; 80053; 81001; 84484; 85025; 87088; 93005; 93880; G0378; J2405; J3490

== ENCOUNTER 2023-02-20 03:00 | Emergency (ER) | payer OTHER ==
[~2023-02-20] VITALS: Ht 152.4 cm; Wt 99.1 kg
[~2023-02-20 03:00] MED LIST changes: +CELE200C PO; -LEVO500T2 PO; -PRED20TA3 PO; +PRED5TAB44 PO
[2023-02-20 03:30] LABS: RAPID GROUP A STREP negative (NEGATIVE)
[2023-02-20 03:35] LABS: SARS-CoV-2, RNA, NAAT NEGATIVE SARS CoV-2 (NEGATIVE)
[2023-02-20 03:37] LABS: BASOPHILS # (AUTO) 0.02 K/uL (0.00-0.20); BASOPHILS % (AUTO) 0.3 % (0.0-5.0); EOSINOPHILS # (AUTO) 0.13 K/uL (0.00-0.70); EOSINOPHILS % (AUTO) 1.9 % (0.0-8.0); HEMATOCRIT 42.3 % (36-48); IMMATURE GRANULOCYTE ABSOLUTE 0.01 K/uL (0-1); LYMPHOCYTES # (AUTO) 2.3 K/uL (1.0-4.8); LYMPHOCYTES % (AUTO) 33.4 % (21.0-51.0); MEAN CORPUSCULAR HEMOGLOBIN 31.5 pg (27.0-33.0); MEAN CORPUSCULAR HGB CONC 33.6 g/dL (32.0-36.0); MEAN CORPUSCULAR VOLUME 93.8 fL (79-99); MONOCYTES # (AUTO) 0.5 K/uL (0.1-1.0); MONOCYTES % (AUTO) 7.8 % (3.0-13.0); NEUTROPHILS # (AUTO) 3.9 K/uL (1.8-7.7); NEUTROPHILS % (AUTO) 56.5 % (40.0-77.0); PLATELET COUNT (AUTO) 222 K/uL (130-400); RED BLOOD CELL COUNT(AUTO) 4.51 MIL/uL (4.00-5.50); RED CELL DISTRIBUTION WIDTH 12.9 % (11.0-15.5); WHITE BLOOD COUNT (AUTO) 6.9 K/uL (4.8-10.8)
[2023-02-20 03:40] LABS: INFLUENZA TYPE A Negative For Type A (NEGATIVE); INFLUENZA TYPE B Negative For Type B (NEGATIVE)
[2023-02-20 03:52] LABS: CREATININE 0.8 mg/dL (0.5-1.5); POTASSIUM 4.1 mmol/L (3.5-5.1)
[2023-02-20 03:57] LABS: ALBUMIN 3.6 g/dL (3.5-5.0); BILIRUBIN,TOTAL 0.5 mg/dL (0.2-1.0); TOTAL PROTEIN, SERUM 7.8 g/dL (6.0-8.3)
[2023-02-20] MEDS ORDERED: DICYCLOMINE HCL 20 MG TAB PO STA (05:43)
[2023-02-20 06:05] LABS: APPEARANCE,URINE CLEAR (CLEAR); BILIRUBIN,URINE NEGATIVE (NEGATIVE); COLOR,URINE LIGHT-YELLOW (YELLOW); GLUCOSE, URINE (UA) NEGATIVE (NEGATIVE); KETONES,URINE NEGATIVE (NEGATIVE); LEUKOCYTE ESTERASE ,URINE 500 Leu/uL (NEGATIVE); NITRATE,URINE NEGATIVE (NEGATIVE); OCCULT BLOOD,URINE NEGATIVE (NEGATIVE); PROTEIN,URINE NEGATIVE (NEGATIVE)
[2023-02-20 06:06] LABS: ADD UA MICROSCOPIC YES
[2023-02-20] MEDS ORDERED: OMEP40CA21 PO (06:06)
[2023-02-20] MEDS ORDERED: DICY20TA2 PO (06:06)
[2023-02-20 06:08] LABS: MUCUS,URINE RARE LPF (None Seen); SQUAMOUS EPITHELIAL CELL,UR RARE /HPF (0-2)
[2023-02-20] MEDS ORDERED: IOHEXOL 350 MG/ML 100ML INFUS..BTL IV ONE (06:19)
[2023-02-20] MEDS ORDERED: MACR100 PO (09:52)
[2023-02-20] MEDS ORDERED: NITROFURANTOIN MONOHYD/M-CRYST 100 MG CAPSULE PO ONE (10:00)
[2023-02-20 11:27] VITALS: BP 126/74; PULSE 70; RESP 16; O2SAT 98
== END 2023-02-20 11:30 | disposition home or self-care (01) ==
LOC: EDH 03:00
DX: N39.0 Urinary tract infection, site not specified (principal); E66.01 Morbid (severe) obesity due to excess calories; Z68.42 Body mass index [BMI] 45.0-49.9, adult; E11.9 Type 2 diabetes mellitus without complications; Z20.822 Contact with and (suspected) exposure to COVID-19; Z79.899 Other long term (current) drug therapy; Z98.890 Other specified postprocedural states; Z90.49 Acquired absence of other specified parts of digestive tract; Z88.0 Allergy status to penicillin
CPT/HCPCS: 99285; 74177; 71045; 87635; 84484; 80053; 83690; 85025; 87088; 87880; 87804 ×2; 81001; 36415; 74021; 93005; C9803; Q9967